=== PATIENT | male | born 1945 | race African-American/Black ===

== ENCOUNTER 2020-07-24 15:20 | Inpatient (IN) ==
[2020-07-24] MEDS ORDERED: SODIUM CHLORIDE 0.9% 500 ML IV STA (17:40)
[2020-07-24] MEDS ORDERED: ONDANSETRON 4 MG/2 ML VIAL IV STA (18:44)
[2020-07-24 18:45] LABS: Basophils % 0.4 % (0.0-0.8); Eosinophils % 0.1 % (0.00-10.9); Hematocrit 47.1 VOL% (42.0-52.0); Hemoglobin 15.3 GM/DL (14.0-18.0); Immature Granulocytes % 0.5 %; Immature Granulocytes Absolute 0.05 #; Lymphocytes % 9.9 % (21.2-54.2); Mean Corpuscular HGB Conc 32.5 GM/DL (32-36); Mean Corpuscular Volume 97.3 FL (87-102); Mean Platelet Volume 9.8 FL (9.6-12.0); Neutrophils % 79.1 % (38.7-73.9); Platelet Count 189 T/CUMM (130-400); Red Blood Count 4.84 MC/CUMM (3.8-5.5); Red Cell Distribution Width 16.8 % (9.3-17.3); White Blood Count 10.5 T/CUMM (4-12)
[2020-07-24 19:03] LABS: Albumin 3.5 G/DL (3.4-5.0); Bilirubin,Total 0.5 MG/DL (0.2-1.0); Total Protein 8.8 G/DL (6.4-8.3)
[2020-07-24] MEDS ORDERED: GLUCAGON 1 MG VIAL IM PRN (19:31)
[2020-07-24] MEDS ORDERED: DEXTROSE 50% 25 GM/50 ML VIAL IV PRN (19:31)
[2020-07-24] MEDS ORDERED: ENOXAPARIN 30 MG/0.3 ML SYRINGE SUBCUT SCH (20:00)
[2020-07-24] MEDS ORDERED: INFLUENZA VIRUS VACCINE 0.5 ML SYRINGE IM ONE (21:27)
[2020-07-24] MEDS: PIPERACILLIN/TAZOBACTAM 3,375 MG in SODIUM CHLORIDE 0.9% 100 ML IV SCH (22:00)
[2020-07-24] MEDS: PANTOPRAZOLE 40 MG VIAL IV SCH (22:00)
[2020-07-24] MEDS ORDERED: VANCOMYCIN INJ 750 MG in SODIUM CHLORIDE 0.9% 250 ML IV PRN (22:33)
[2020-07-25] MEDS ORDERED: VANCOMYCIN INJ 1,500 MG in SODIUM CHLORIDE 0.9% 500 ML IV ONE (02:00)
[2020-07-25 02:28] LABS: INR 2.4; PT Patient Result 24.8 SECS (9.8-11.9)
[2020-07-25 03:01] LABS: Calcium 8.1 MG/DL (8.5-10.1); Osmolality,Calculated 278.1 MOS/KG (273-304); Risk Ratio 4.24; Thyroid Stimulating Hormone 1.08 uIU/ml (0.358-3.74); VLDL CHOLESTEROL 39.4 MG/DL
[2020-07-25 05:46] LABS: Basophils % 0.2 % (0.0-0.8); Hematocrit 43.1 VOL% (42.0-52.0); Hemoglobin 13.9 GM/DL (14.0-18.0); Immature Granulocytes % 0.9 %; Immature Granulocytes Absolute 0.15 #; Lymphocytes # 2.2 10*3/uL (1.4-4.0); Lymphocytes % 13.2 % (21.2-54.2); Mean Corpuscular HGB Conc 32.3 GM/DL (32-36); Mean Corpuscular Volume 99.1 FL (87-102); Mean Platelet Volume 9.9 FL (9.6-12.0); Monocytes % 12.3 % (1.7-12.7); Neutrophils % 73.4 % (38.7-73.9); Platelet Count 164 T/CUMM (130-400); Red Blood Count 4.35 MC/CUMM (3.8-5.5); Red Cell Distribution Width 16.7 % (9.3-17.3); White Blood Count 16.8 T/CUMM (4-12)
[2020-07-25] MEDS ORDERED: FUROSEMIDE 20 MG TABLET PO SCH (09:00)
[2020-07-25] MEDS ORDERED: HEPARIN 5,000 UNIT/1 ML VIAL SUBCUT SCH (09:00)
[2020-07-25 09:03] LABS: ABG Base Excess 0.5 MMOL/L (-2.5-2.5); ABG HCO3 24.9 MMOL/L (20-26); ABG Oxygen Saturation 96.5 % (95-100); ABG PCO2 39.5 MM HG (35-48); ABG PH 7.411 (7.35-7.45); ABG PO2 86.1 MM HG (80-95); ABG TCO2 21.8 MMOL/L (23-27)
[2020-07-25 09:22] LABS: INR 2.2
[2020-07-25 09:28] LABS: Ferritin 692.2 ng/ml (26-388)
[2020-07-25] MEDS: ZINC GLUCONATE 50 MG TABLET PO SCH (10:52)
[2020-07-25] MEDS: CETIRIZINE 10 MG TABLET PO SCH (10:52)
[2020-07-25] MEDS: ASCORBIC ACID 500 MG TABLET PO SCH ×2 (10:52→21:00)
[2020-07-25] MEDS: FAMOTIDINE 20 MG TABLET PO SCH (10:52)
[2020-07-25] MEDS: MULTIVITAMIN (BEROCCA) TABLET PO SCH (10:52)
[2020-07-25] MEDS: PIPERACILLIN/TAZOBACTAM 3,375 MG in SODIUM CHLORIDE 0.9% 100 ML IV SCH ×2 (10:53→21:03)
[2020-07-25] MEDS: CHOLECALCIFEROL 1,000 UNIT TABLET PO SCH (11:30)
[2020-07-25] MEDS ORDERED: ALBUMIN 5% 25 GM in PREMIX 1 EACH IV ONE (14:00)
[2020-07-25] MEDS ORDERED: carvediloL 12.5 MG TABLET PO SCH (17:00)
[2020-07-25] MEDS ORDERED: carvediloL 3.125 MG TABLET PO SCH (17:00)
[2020-07-25] MEDS: WARFARIN 2 MG TABLET PO SCH (17:51)
[2020-07-25] MEDS: SODIUM CHLORIDE 0.9% 500 ML IV SCH (18:42)
[2020-07-25] MEDS: PANTOPRAZOLE 40 MG VIAL IV SCH (21:00)
[2020-07-25] MEDS: SIMVASTATIN 20 MG TABLET PO SCH (21:00)
[2020-07-26 04:29] LABS: INR 1.9; PT Patient Result 19.5 SECS (9.8-11.9)
[2020-07-26 08:05] LABS: Basophils % 0.3 % (0.0-0.8); Eosinophils # 0.1 10*3/uL (0.0-0.87); Eosinophils % 0.8 % (0.00-10.9); Hemoglobin 13.3 GM/DL (14.0-18.0); Immature Granulocytes % 0.3 %; Immature Granulocytes Absolute 0.03 #; Lymphocytes # 1.3 10*3/uL (1.4-4.0); Mean Corpuscular HGB Conc 31.7 GM/DL (32-36); Mean Corpuscular Volume 98.4 FL (87-102); Mean Platelet Volume 9.9 FL (9.6-12.0); Monocytes % 9.5 % (1.7-12.7); Neutrophils % 76.1 % (38.7-73.9); Platelet Count 158 T/CUMM (130-400); Red Blood Count 4.27 MC/CUMM (3.8-5.5); Red Cell Distribution Width 16.8 % (9.3-17.3); White Blood Count 9.6 T/CUMM (4-12)
[2020-07-26] MEDS: SODIUM CHLORIDE 0.9% 500 ML IV SCH ×3 (08:19→09:02)
[2020-07-26 08:29] LABS: Calcium 8.9 MG/DL (8.5-10.1); Osmolality,Calculated 292.8 MOS/KG (273-304)
[2020-07-26] MEDS: MAGNESIUM OXIDE 400 MG TABLET PO SCH (09:01)
[2020-07-26] MEDS: MULTIVITAMIN (BEROCCA) TABLET PO SCH (09:01)
[2020-07-26] MEDS: FAMOTIDINE 20 MG TABLET PO SCH (09:02)
[2020-07-26] MEDS: CHOLECALCIFEROL 1,000 UNIT TABLET PO SCH (09:02)
[2020-07-26] MEDS: ASCORBIC ACID 500 MG TABLET PO SCH ×2 (09:02→21:09)
[2020-07-26] MEDS: ZINC GLUCONATE 50 MG TABLET PO SCH (09:02)
[2020-07-26] MEDS: CETIRIZINE 10 MG TABLET PO SCH (09:03)
[2020-07-26] MEDS: PIPERACILLIN/TAZOBACTAM 3,375 MG in SODIUM CHLORIDE 0.9% 100 ML IV SCH ×2 (09:03→21:09)
[2020-07-26] MEDS: DEXAMETHASONE 4 MG/1 ML VIAL IV SCH (11:58)
[2020-07-26] MEDS: ACETAMINOPHEN 325 MG TABLET PO PRN ×2 (12:08→16:45)
[2020-07-26 13:18] LABS: Hepatitis B Core IgM Quant 0.06 Index; Hepatitis B Surface Ag Quant < 0.10 Index; Hepatitis B Surface Ag Result Negative (Negative); Hepatitis C Virus Ab Quant < 0.02 Index; Hepatitis C Virus Ab Result Negative (Negative)
[2020-07-26] MEDS: WARFARIN 5 MG TABLET PO SCH (17:21)
[2020-07-26] MEDS: SIMVASTATIN 20 MG TABLET PO SCH (21:09)
[2020-07-27] MEDS: ONDANSETRON 4 MG/2 ML VIAL IV PRN ×2 (05:36→08:20)
[2020-07-27 05:49] LABS: Basophils % 0.5 % (0.0-0.8); Hematocrit 45.9 VOL% (42.0-52.0); Immature Granulocytes % 0.6 %; Immature Granulocytes Absolute 0.05 #; Mean Corpuscular HGB Conc 32.7 GM/DL (32-36); Mean Corpuscular Volume 97.7 FL (87-102); Mean Platelet Volume 9.7 FL (9.6-12.0); Monocytes % 9.9 % (1.7-12.7); Platelet Count 149 T/CUMM (130-400); Red Cell Distribution Width 16.5 % (9.3-17.3); White Blood Count 7.9 T/CUMM (4-12)
[2020-07-27 05:58] LABS: INR 1.3; PT Patient Result 13.3 SECS (9.8-11.9)
[2020-07-27 07:27] LABS: Bilirubin,Total 0.7 MG/DL (0.2-1.0); Calcium 9.2 MG/DL (8.5-10.1); Ferritin 1164.1 ng/ml (26-388); Osmolality,Calculated 277.4 MOS/KG (273-304); Total Protein 8.2 G/DL (6.4-8.3)
[2020-07-27] MEDS: MAGNESIUM OXIDE 400 MG TABLET PO SCH (08:20)
[2020-07-27] MEDS: FAMOTIDINE 20 MG TABLET PO SCH ×2 (09:41→21:21)
[2020-07-27] MEDS: PIPERACILLIN/TAZOBACTAM 3,375 MG in SODIUM CHLORIDE 0.9% 100 ML IV SCH ×2 (09:41→21:21)
[2020-07-27] MEDS: ASCORBIC ACID 500 MG TABLET PO SCH ×2 (09:41→21:21)
[2020-07-27] MEDS: CHOLECALCIFEROL 1,000 UNIT TABLET PO SCH (09:41)
[2020-07-27] MEDS: CETIRIZINE 10 MG TABLET PO SCH (09:41)
[2020-07-27] MEDS: MULTIVITAMIN (BEROCCA) TABLET PO SCH (09:41)
[2020-07-27] MEDS: ZINC GLUCONATE 50 MG TABLET PO SCH (09:41)
[2020-07-27] MEDS: DEXAMETHASONE 4 MG/1 ML VIAL IV SCH (10:49)
[2020-07-27] MEDS: ACETAMINOPHEN 325 MG TABLET PO PRN (13:31)
[2020-07-27] MEDS ORDERED: SODIUM CHLORIDE 0.9% 1,000 ML IV PRN (15:21)
[2020-07-27] MEDS: WARFARIN 5 MG TABLET PO SCH (17:35)
[2020-07-27 17:46] LABS: QuantiFERON-Tb Gold Pl Positive (Negative); TB2 Ag Minus Result 4.84 IU/mL
[2020-07-27] MEDS: MELATONIN 3 MG TABLET PO PRN (21:21)
[2020-07-27] MEDS: SIMVASTATIN 20 MG TABLET PO SCH (21:21)
[2020-07-28 05:14] LABS: INR 1.3; PT Patient Result 13.9 SECS (9.8-11.9)
[2020-07-28 08:08] LABS: Basophils % 0.3 % (0.0-0.8); Hematocrit 41.9 VOL% (42.0-52.0); Immature Granulocytes % 0.9 %; Immature Granulocytes Absolute 0.07 #; Lymphocytes # 0.8 10*3/uL (1.4-4.0); Lymphocytes % 10.9 % (21.2-54.2); Mean Corpuscular HGB Conc 33.4 GM/DL (32-36); Mean Platelet Volume 10.8 FL (9.6-12.0); Monocytes % 9.2 % (1.7-12.7); Neutrophils % 78.7 % (38.7-73.9); Platelet Count 144 T/CUMM (130-400); Red Blood Count 4.41 MC/CUMM (3.8-5.5); Red Cell Distribution Width 16.5 % (9.3-17.3); White Blood Count 7.7 T/CUMM (4-12)
[2020-07-28 08:30] LABS: Calcium 8.6 MG/DL (8.5-10.1); Osmolality,Calculated 289.2 MOS/KG (273-304)
[2020-07-28] MEDS: ZINC GLUCONATE 50 MG TABLET PO SCH (08:32)
[2020-07-28] MEDS: MAGNESIUM OXIDE 400 MG TABLET PO SCH (08:32)
[2020-07-28] MEDS: CETIRIZINE 10 MG TABLET PO SCH (08:32)
[2020-07-28] MEDS: CHOLECALCIFEROL 1,000 UNIT TABLET PO SCH (08:32)
[2020-07-28] MEDS: FAMOTIDINE 20 MG TABLET PO SCH ×2 (08:33→20:40)
[2020-07-28] MEDS: MULTIVITAMIN (BEROCCA) TABLET PO SCH (08:33)
[2020-07-28] MEDS: PIPERACILLIN/TAZOBACTAM 3,375 MG in SODIUM CHLORIDE 0.9% 100 ML IV SCH ×2 (08:34→20:41)
[2020-07-28] MEDS: ASCORBIC ACID 500 MG TABLET PO SCH ×2 (09:26→20:40)
[2020-07-28] MEDS ORDERED: TUBERCULIN SKIN TEST 0.1 ML SYRINGE INTRADERM ONE (10:50)
[2020-07-28] MEDS: DEXAMETHASONE 4 MG/1 ML VIAL IV SCH (12:28)
[2020-07-28] MEDS: ACETAMINOPHEN 325 MG TABLET PO PRN (14:10)
[2020-07-28] MEDS ORDERED: WARFARIN 7.5 MG TABLET PO ONE (18:00)
[2020-07-28] MEDS: SIMVASTATIN 20 MG TABLET PO SCH (20:40)
[2020-07-28] MEDS: MELATONIN 3 MG TABLET PO PRN (20:40)
[2020-07-29] MEDS: ACETAMINOPHEN 325 MG TABLET PO PRN ×2 (04:48→12:34)
[2020-07-29 05:16] LABS: Basophils % 0.1 % (0.0-0.8); Hematocrit 39.6 VOL% (42.0-52.0); Hemoglobin 13.5 GM/DL (14.0-18.0); Immature Granulocytes % 0.7 %; Immature Granulocytes Absolute 0.05 #; Lymphocytes # 0.7 10*3/uL (1.4-4.0); Lymphocytes % 9.5 % (21.2-54.2); Mean Corpuscular HGB Conc 34.1 GM/DL (32-36); Mean Corpuscular Volume 92.7 FL (87-102); Mean Platelet Volume 11.1 FL (9.6-12.0); Monocytes % 7.3 % (1.7-12.7); Neutrophils % 82.4 % (38.7-73.9); Platelet Count 148 T/CUMM (130-400); Red Blood Count 4.27 MC/CUMM (3.8-5.5); Red Cell Distribution Width 15.9 % (9.3-17.3)
[2020-07-29 05:25] LABS: INR 1.5; PT Patient Result 15.5 SECS (9.8-11.9)
[2020-07-29 05:55] LABS: Calcium 8.8 MG/DL (8.5-10.1); Osmolality,Calculated 281.2 MOS/KG (273-304)
[2020-07-29] MEDS: ISONIAZID 300 MG TABLET PO SCH (08:22)
[2020-07-29] MEDS: PIPERACILLIN/TAZOBACTAM 3,375 MG in SODIUM CHLORIDE 0.9% 100 ML IV SCH ×2 (08:22→21:23)
[2020-07-29] MEDS: MAGNESIUM OXIDE 400 MG TABLET PO SCH (08:23)
[2020-07-29] MEDS: CETIRIZINE 10 MG TABLET PO SCH (08:23)
[2020-07-29] MEDS: FAMOTIDINE 20 MG TABLET PO SCH ×2 (08:23→21:23)
[2020-07-29] MEDS: CHOLECALCIFEROL 1,000 UNIT TABLET PO SCH (08:23)
[2020-07-29] MEDS: MULTIVITAMIN (BEROCCA) TABLET PO SCH (08:23)
[2020-07-29] MEDS: ZINC GLUCONATE 50 MG TABLET PO SCH (08:23)
[2020-07-29] MEDS: ASCORBIC ACID 500 MG TABLET PO SCH ×2 (08:24→21:23)
[2020-07-29] MEDS: DEXAMETHASONE 4 MG/1 ML VIAL IV SCH (14:38)
[2020-07-29] MEDS: WARFARIN 5 MG TABLET PO SCH (18:32)
[2020-07-29] MEDS: SIMVASTATIN 20 MG TABLET PO SCH (21:23)
[2020-07-30 06:18] LABS: INR 2.1
[2020-07-30 06:20] LABS: PT Patient Result 21.8 SECS (9.8-11.9)
[2020-07-30] MEDS: MAGNESIUM OXIDE 400 MG TABLET PO SCH (08:24)
[2020-07-30] MEDS: MULTIVITAMIN (BEROCCA) TABLET PO SCH (08:24)
[2020-07-30] MEDS: ASCORBIC ACID 500 MG TABLET PO SCH ×2 (08:25→20:31)
[2020-07-30] MEDS: FAMOTIDINE 20 MG TABLET PO SCH ×2 (08:25→20:32)
[2020-07-30] MEDS: ZINC GLUCONATE 50 MG TABLET PO SCH (08:25)
[2020-07-30] MEDS: PIPERACILLIN/TAZOBACTAM 3,375 MG in SODIUM CHLORIDE 0.9% 100 ML IV SCH (08:25)
[2020-07-30] MEDS: ISONIAZID 300 MG TABLET PO SCH (08:25)
[2020-07-30] MEDS: CETIRIZINE 10 MG TABLET PO SCH (08:25)
[2020-07-30] MEDS: CHOLECALCIFEROL 1,000 UNIT TABLET PO SCH (08:25)
[2020-07-30] MEDS: DEXAMETHASONE 4 MG/1 ML VIAL IV SCH (11:05)
[2020-07-30] MEDS: ACETAMINOPHEN 325 MG TABLET PO PRN (12:16)
[2020-07-30] MEDS: cefTRIAXone 1,000 MG in SYRINGE 1 EACH IV SCH (16:41)
[2020-07-30] MEDS: WARFARIN 5 MG TABLET PO SCH (17:20)
[2020-07-30] MEDS ORDERED: VANCOMYCIN INJ 1,500 MG in SODIUM CHLORIDE 0.9% 500 ML IV ONE (18:00)
[2020-07-30] MEDS: SIMVASTATIN 20 MG TABLET PO SCH (20:31)
[2020-07-31 05:50] LABS: Calcium 9.3 MG/DL (8.5-10.1); Osmolality,Calculated 298.4 MOS/KG (273-304)
[2020-07-31 05:57] LABS: Basophils % 0.1 % (0.0-0.8); Hematocrit 40.1 VOL% (42.0-52.0); Hemoglobin 13.4 GM/DL (14.0-18.0); Immature Granulocytes % 2.3 %; Lymphocytes # 0.7 10*3/uL (1.4-4.0); Lymphocytes % 8.4 % (21.2-54.2); Mean Corpuscular HGB Conc 33.4 GM/DL (32-36); Mean Corpuscular Volume 93.9 FL (87-102); Mean Platelet Volume 11.4 FL (9.6-12.0); Monocytes % 5.7 % (1.7-12.7); Neutrophils % 83.5 % (38.7-73.9); Platelet Count 189 T/CUMM (130-400); Red Blood Count 4.27 MC/CUMM (3.8-5.5); Red Cell Distribution Width 16.3 % (9.3-17.3); White Blood Count 8.7 T/CUMM (4-12)
[2020-07-31 06:10] LABS: INR 2.1
[2020-07-31 06:11] LABS: PT Patient Result 21.7 SECS (9.8-11.9)
[2020-07-31] MEDS: ISONIAZID 300 MG TABLET PO SCH (08:00)
[2020-07-31] MEDS: FAMOTIDINE 20 MG TABLET PO SCH ×2 (08:00→22:23)
[2020-07-31] MEDS: MULTIVITAMIN (BEROCCA) TABLET PO SCH (08:00)
[2020-07-31] MEDS: ASCORBIC ACID 500 MG TABLET PO SCH ×2 (08:00→22:24)
[2020-07-31] MEDS: CETIRIZINE 10 MG TABLET PO SCH (08:00)
[2020-07-31] MEDS: MAGNESIUM OXIDE 400 MG TABLET PO SCH (08:00)
[2020-07-31] MEDS: CHOLECALCIFEROL 1,000 UNIT TABLET PO SCH (08:00)
[2020-07-31] MEDS: ZINC GLUCONATE 50 MG TABLET PO SCH (08:00)
[2020-07-31] MEDS ORDERED: ERGOCALCIFEROL 50,000 UNIT CAPSULE PO SCH (09:00)
[2020-07-31] MEDS: DEXAMETHASONE 4 MG/1 ML VIAL IV SCH (11:32)
[2020-07-31] MEDS: ACETAMINOPHEN 325 MG TABLET PO PRN (11:48)
[2020-07-31] MEDS: cefTRIAXone 1,000 MG in SYRINGE 1 EACH IV SCH (14:18)
[2020-07-31] MEDS ORDERED: VANCOMYCIN INJ 500 MG in SODIUM CHLORIDE 0.9% 100 ML IV PRN (17:00)
[2020-07-31] MEDS ORDERED: VANCOMYCIN INJ 500 MG in SODIUM CHLORIDE 0.9% 100 ML IV ONE (17:00)
[2020-07-31] MEDS: WARFARIN 2 MG TABLET PO SCH (17:05)
[2020-07-31] MEDS: SIMVASTATIN 20 MG TABLET PO SCH (22:24)
[2020-08-01] MEDS: ONDANSETRON 4 MG/2 ML VIAL IV PRN (03:12)
[2020-08-01] MEDS: ACETAMINOPHEN 325 MG TABLET PO PRN ×2 (05:00→09:42)
[2020-08-01 06:28] LABS: Albumin 2.2 G/DL (3.4-5.0); Bilirubin,Total 0.5 MG/DL (0.2-1.0); Calcium 9.4 MG/DL (8.5-10.1); Osmolality,Calculated 284.7 MOS/KG (273-304); Total Protein 8.2 G/DL (6.4-8.3)
[2020-08-01 07:41] LABS: Basophils % 0.1 % (0.0-0.8); Hematocrit 31.5 VOL% (42.0-52.0); Hemoglobin 10.2 GM/DL (14.0-18.0); Immature Granulocytes % 1.9 %; Immature Granulocytes Absolute 0.13 #; Lymphocytes # 0.5 10*3/uL (1.4-4.0); Lymphocytes % 6.4 % (21.2-54.2); Mean Corpuscular HGB Conc 32.4 GM/DL (32-36); Mean Corpuscular Volume 96.6 FL (87-102); Mean Platelet Volume 11.3 FL (9.6-12.0); Monocytes % 6.2 % (1.7-12.7); Neutrophils % 85.4 % (38.7-73.9); Platelet Count 135 T/CUMM (130-400); Red Blood Count 3.26 MC/CUMM (3.8-5.5); Red Cell Distribution Width 16.6 % (9.3-17.3)
[2020-08-01] MEDS: MAGNESIUM OXIDE 400 MG TABLET PO SCH (09:41)
[2020-08-01] MEDS: MULTIVITAMIN (BEROCCA) TABLET PO SCH (09:42)
[2020-08-01] MEDS: CETIRIZINE 10 MG TABLET PO SCH (09:42)
[2020-08-01] MEDS: FAMOTIDINE 20 MG TABLET PO SCH ×2 (09:42→21:57)
[2020-08-01] MEDS: ISONIAZID 300 MG TABLET PO SCH (12:00)
[2020-08-01 12:09] LABS: INR 3.4
[2020-08-01] MEDS: ASCORBIC ACID 500 MG TABLET PO SCH ×2 (12:09→21:57)
[2020-08-01] MEDS: CHOLECALCIFEROL 1,000 UNIT TABLET PO SCH (12:09)
[2020-08-01] MEDS: DEXAMETHASONE 4 MG/1 ML VIAL IV SCH (12:09)
[2020-08-01] MEDS: ZINC GLUCONATE 50 MG TABLET PO SCH (12:09)
[2020-08-01 12:10] LABS: PT Patient Result 33.9 SECS (9.8-11.9)
[2020-08-01] MEDS: cefTRIAXone 1,000 MG in SYRINGE 1 EACH IV SCH (15:12)
[2020-08-01] MEDS: WARFARIN 2 MG TABLET PO SCH (21:57)
[2020-08-01] MEDS: SIMVASTATIN 20 MG TABLET PO SCH (21:57)
[2020-08-02 05:22] LABS: Basophils % 0.2 % (0.0-0.8); Hematocrit 38.5 VOL% (42.0-52.0); Immature Granulocytes % 2.7 %; Lymphocytes # 0.7 10*3/uL (1.4-4.0); Lymphocytes % 6.5 % (21.2-54.2); Mean Corpuscular HGB Conc 33.8 GM/DL (32-36); Mean Corpuscular Volume 92.1 FL (87-102); Mean Platelet Volume 11.4 FL (9.6-12.0); Monocytes % 6.6 % (1.7-12.7); Platelet Count 263 T/CUMM (130-400); Red Blood Count 4.18 MC/CUMM (3.8-5.5); Red Cell Distribution Width 15.9 % (9.3-17.3); White Blood Count 11.3 T/CUMM (4-12)
[2020-08-02 05:31] LABS: INR 3.1; PT Patient Result 31.7 SECS (9.8-11.9)
[2020-08-02 05:54] LABS: Albumin 1.8 G/DL (3.4-5.0); Bilirubin,Total 0.6 MG/DL (0.2-1.0); Calcium 9.2 MG/DL (8.5-10.1); Osmolality,Calculated 299.4 MOS/KG (273-304)
[2020-08-02] MEDS: CHOLECALCIFEROL 1,000 UNIT TABLET PO SCH (09:03)
[2020-08-02] MEDS: CETIRIZINE 10 MG TABLET PO SCH (09:03)
[2020-08-02] MEDS: ISONIAZID 300 MG TABLET PO SCH (09:03)
[2020-08-02] MEDS: MAGNESIUM OXIDE 400 MG TABLET PO SCH (09:03)
[2020-08-02] MEDS: FAMOTIDINE 20 MG TABLET PO SCH ×2 (09:03→22:33)
[2020-08-02] MEDS: MULTIVITAMIN (BEROCCA) TABLET PO SCH (09:03)
[2020-08-02] MEDS: ZINC GLUCONATE 50 MG TABLET PO SCH (09:03)
[2020-08-02] MEDS: ASCORBIC ACID 500 MG TABLET PO SCH ×2 (09:03→22:33)
[2020-08-02] MEDS: DEXAMETHASONE 4 MG/1 ML VIAL IV SCH (11:30)
[2020-08-02] MEDS: WARFARIN 5 MG TABLET PO SCH (18:08)
[2020-08-02] MEDS: cefTRIAXone 1,000 MG in SYRINGE 1 EACH IV SCH (18:09)
[2020-08-02] MEDS: SIMVASTATIN 20 MG TABLET PO SCH (22:33)
[2020-08-03 05:37] LABS: Basophils % 0.2 % (0.0-0.8); Hematocrit 38.6 VOL% (42.0-52.0); Hemoglobin 13.4 GM/DL (14.0-18.0); Immature Granulocytes % 5.1 %; Lymphocytes # 0.7 10*3/uL (1.4-4.0); Lymphocytes % 5.8 % (21.2-54.2); Mean Corpuscular HGB Conc 34.7 GM/DL (32-36); Mean Platelet Volume 11.2 FL (9.6-12.0); Monocytes % 7.5 % (1.7-12.7); Neutrophils % 81.4 % (38.7-73.9); Platelet Count 322 T/CUMM (130-400); Red Blood Count 4.29 MC/CUMM (3.8-5.5); Red Cell Distribution Width 15.7 % (9.3-17.3); White Blood Count 11.9 T/CUMM (4-12)
[2020-08-03 05:50] LABS: INR 3.3; PT Patient Result 32.9 SECS (9.8-11.9)
[2020-08-03 06:00] LABS: Bilirubin,Total 0.4 MG/DL (0.2-1.0); Calcium 9.1 MG/DL (8.5-10.1); Osmolality,Calculated 292.1 MOS/KG (273-304); Total Protein 7.4 G/DL (6.4-8.3)
[2020-08-03 06:02] LABS: Band Neutrophils 1 % (0-10); Hypochromasia 1+; Lymphocytes 8 % (20-55); Microcytosis 1+; Ovalocytes Slight; Platelet Estimate Adequate; Segmented Neutrophils 82 % (50-85); Total Cells Counted 100
[2020-08-03] MEDS: ISONIAZID 300 MG TABLET PO SCH (09:43)
[2020-08-03] MEDS: MAGNESIUM OXIDE 400 MG TABLET PO SCH (09:43)
[2020-08-03] MEDS: ZINC GLUCONATE 50 MG TABLET PO SCH (09:43)
[2020-08-03] MEDS: FAMOTIDINE 20 MG TABLET PO SCH ×2 (09:43→21:25)
[2020-08-03] MEDS: CHOLECALCIFEROL 1,000 UNIT TABLET PO SCH (09:43)
[2020-08-03] MEDS: ASCORBIC ACID 500 MG TABLET PO SCH ×2 (09:43→21:25)
[2020-08-03] MEDS: MULTIVITAMIN (BEROCCA) TABLET PO SCH (09:43)
[2020-08-03] MEDS ORDERED: VANCOMYCIN INJ 500 MG in SODIUM CHLORIDE 0.9% 100 ML IV ONE (10:00)
[2020-08-03] MEDS: CETIRIZINE 10 MG TABLET PO SCH (10:33)
[2020-08-03] MEDS: DEXAMETHASONE 4 MG/1 ML VIAL IV SCH (10:34)
[2020-08-03] MEDS: cefTRIAXone 1,000 MG in SYRINGE 1 EACH IV SCH (16:38)
[2020-08-03] MEDS ORDERED: WARFARIN 2 MG TABLET PO SCH (18:00)
[2020-08-03] MEDS: SIMVASTATIN 20 MG TABLET PO SCH (21:25)
[2020-08-03] MEDS: MELATONIN 3 MG TABLET PO PRN (21:25)
[2020-08-03] MEDS: ACETAMINOPHEN 325 MG TABLET PO PRN (21:26)
[2020-08-04 05:16] LABS: INR 3.4; PT Patient Result 34.1 SECS (9.8-11.9)
[2020-08-04] MEDS: CETIRIZINE 10 MG TABLET PO SCH (09:35)
[2020-08-04] MEDS: ZINC GLUCONATE 50 MG TABLET PO SCH (09:35)
[2020-08-04] MEDS: MULTIVITAMIN (BEROCCA) TABLET PO SCH (09:35)
[2020-08-04] MEDS: FAMOTIDINE 20 MG TABLET PO SCH ×2 (09:35→20:44)
[2020-08-04] MEDS: CHOLECALCIFEROL 1,000 UNIT TABLET PO SCH (09:35)
[2020-08-04] MEDS: ASCORBIC ACID 500 MG TABLET PO SCH ×2 (09:35→20:44)
[2020-08-04] MEDS: ISONIAZID 300 MG TABLET PO SCH (09:35)
[2020-08-04] MEDS: MAGNESIUM OXIDE 400 MG TABLET PO SCH (10:45)
[2020-08-04 12:01] LABS: Albumin 2.6 G/DL (3.4-5.0); Calcium 9.1 MG/DL (8.5-10.1); Osmolality,Calculated 283.1 MOS/KG (273-304)
[2020-08-04] MEDS: DEXAMETHASONE 4 MG/1 ML VIAL IV SCH (13:18)
[2020-08-04] MEDS: cefTRIAXone 1,000 MG in SYRINGE 1 EACH IV SCH (15:32)
[2020-08-04] MEDS: DESITIN 4OZ/NYSTATIN 15 GRAM MIXTURE PASTE TOP SCH ×2 (17:07→20:45)
[2020-08-04] MEDS ORDERED: WARFARIN 5 MG TABLET PO SCH (18:00)
[2020-08-04] MEDS: MELATONIN 3 MG TABLET PO PRN (20:44)
[2020-08-04] MEDS: SIMVASTATIN 20 MG TABLET PO SCH (20:44)
[2020-08-05 04:39] LABS: Basophils # 0.1 10*3/uL (0.0-0.2); Basophils % 0.5 % (0.0-0.8); Hematocrit 39.2 VOL% (42.0-52.0); Hemoglobin 13.2 GM/DL (14.0-18.0); Immature Granulocytes % 7.9 %; Immature Granulocytes Absolute 1.08 #; Lymphocytes # 0.7 10*3/uL (1.4-4.0); Lymphocytes % 4.8 % (21.2-54.2); Mean Corpuscular HGB Conc 33.7 GM/DL (32-36); Mean Corpuscular Volume 93.3 FL (87-102); Monocytes % 8.2 % (1.7-12.7); Neutrophils % 78.6 % (38.7-73.9); Platelet Count 395 T/CUMM (130-400); Red Cell Distribution Width 16.1 % (9.3-17.3); White Blood Count 13.7 T/CUMM (4-12)
[2020-08-05 05:00] LABS: Albumin 2.3 G/DL (3.4-5.0); Bilirubin,Total 0.5 MG/DL (0.2-1.0); Calcium 9.6 MG/DL (8.5-10.1); Osmolality,Calculated 298.1 MOS/KG (273-304); Total Protein 7.6 G/DL (6.4-8.3)
[2020-08-05 05:04] LABS: Band Neutrophils 1 % (0-10); Lymphocytes 3 % (20-55); Platelet Estimate Adequate; Segmented Neutrophils 89 % (50-85); Total Cells Counted 100
[2020-08-05 05:05] LABS: Hypochromasia Slight; INR 2.8; Microcytosis 1+; PT Patient Result 28.3 SECS (9.8-11.9)
[2020-08-05] MEDS: ZINC GLUCONATE 50 MG TABLET PO SCH (09:47)
[2020-08-05] MEDS: FAMOTIDINE 20 MG TABLET PO SCH ×2 (09:47→20:19)
[2020-08-05] MEDS: CETIRIZINE 10 MG TABLET PO SCH (09:47)
[2020-08-05] MEDS: MULTIVITAMIN (BEROCCA) TABLET PO SCH (09:47)
[2020-08-05] MEDS: ASCORBIC ACID 500 MG TABLET PO SCH ×2 (09:47→20:19)
[2020-08-05] MEDS: CHOLECALCIFEROL 1,000 UNIT TABLET PO SCH (09:47)
[2020-08-05] MEDS: ISONIAZID 300 MG TABLET PO SCH (09:47)
[2020-08-05] MEDS: DESITIN 4OZ/NYSTATIN 15 GRAM MIXTURE PASTE TOP SCH ×2 (09:47→20:20)
[2020-08-05] MEDS: MAGNESIUM OXIDE 400 MG TABLET PO SCH (10:06)
[2020-08-05] MEDS: DEXAMETHASONE 4 MG/1 ML VIAL IV SCH (11:45)
[2020-08-05] MEDS: cefTRIAXone 1,000 MG in SYRINGE 1 EACH IV SCH (15:15)
[2020-08-05] MEDS: WARFARIN 2 MG TABLET PO SCH (17:48)
[2020-08-05] MEDS: SIMVASTATIN 20 MG TABLET PO SCH (20:19)
[2020-08-05] MEDS: MELATONIN 3 MG TABLET PO PRN (20:20)
[2020-08-06 05:23] LABS: PT Patient Result 20.5 SECS (9.8-11.9)
[2020-08-06 05:24] LABS: Basophils % 0.2 % (0.0-0.8); Hematocrit 34.6 VOL% (42.0-52.0); Immature Granulocytes % 8.7 %; Immature Granulocytes Absolute 1.35 #; Lymphocytes # 0.9 10*3/uL (1.4-4.0); Lymphocytes % 5.6 % (21.2-54.2); Mean Corpuscular HGB Conc 34.7 GM/DL (32-36); Mean Corpuscular Volume 91.5 FL (87-102); Mean Platelet Volume 10.5 FL (9.6-12.0); Monocytes % 7.3 % (1.7-12.7); NRBC # 0.11 10*3/uL; Neutrophils % 78.2 % (38.7-73.9); Platelet Count 382 T/CUMM (130-400); Red Blood Count 3.78 MC/CUMM (3.8-5.5); Red Cell Distribution Width 15.9 % (9.3-17.3); White Blood Count 15.5 T/CUMM (4-12)
[2020-08-06 05:39] LABS: Calcium 9.4 MG/DL (8.5-10.1); Osmolality,Calculated 299.4 MOS/KG (273-304)
[2020-08-06 06:10] LABS: Lymphocytes 15 % (20-55); Nucleated Red Blood Cells 1 (0-5); Platelet Estimate Normal; Segmented Neutrophils 84 % (50-85); Total Cells Counted 100
[2020-08-06] MEDS: DESITIN 4OZ/NYSTATIN 15 GRAM MIXTURE PASTE TOP SCH ×2 (13:55→21:13)
[2020-08-06] MEDS: ISONIAZID 300 MG TABLET PO SCH (13:55)
[2020-08-06] MEDS: FAMOTIDINE 20 MG TABLET PO SCH ×2 (13:55→21:13)
[2020-08-06] MEDS: MULTIVITAMIN (BEROCCA) TABLET PO SCH (13:55)
[2020-08-06] MEDS: MAGNESIUM OXIDE 400 MG TABLET PO SCH (13:55)
[2020-08-06] MEDS: CETIRIZINE 10 MG TABLET PO SCH (13:56)
[2020-08-06] MEDS: ZINC GLUCONATE 50 MG TABLET PO SCH (13:56)
[2020-08-06] MEDS: CHOLECALCIFEROL 1,000 UNIT TABLET PO SCH (13:56)
[2020-08-06] MEDS: DEXAMETHASONE 4 MG/1 ML VIAL IV SCH (13:56)
[2020-08-06] MEDS: ASCORBIC ACID 500 MG TABLET PO SCH ×2 (13:56→21:13)
[2020-08-06] MEDS: cefTRIAXone 1,000 MG in SYRINGE 1 EACH IV SCH (14:00)
[2020-08-06] MEDS: WARFARIN 5 MG TABLET PO SCH (19:17)
[2020-08-06] MEDS: MELATONIN 3 MG TABLET PO PRN (21:13)
[2020-08-06] MEDS: SIMVASTATIN 20 MG TABLET PO SCH (21:13)
[2020-08-07 06:04] LABS: Basophils % 0.1 % (0.0-0.8); Eosinophils # 0.1 10*3/uL (0.0-0.87); Eosinophils % 0.4 % (0.00-10.9); Hematocrit 41.1 VOL% (42.0-52.0); Hemoglobin 13.9 GM/DL (14.0-18.0); Immature Granulocytes % 11.7 %; Immature Granulocytes Absolute 1.78 #; Lymphocytes # 1.5 10*3/uL (1.4-4.0); Lymphocytes % 9.5 % (21.2-54.2); Mean Corpuscular HGB Conc 33.8 GM/DL (32-36); Mean Corpuscular Volume 94.9 FL (87-102); Mean Platelet Volume 10.5 FL (9.6-12.0); Monocytes % 7.3 % (1.7-12.7); NRBC # 0.07 10*3/uL; Platelet Count 358 T/CUMM (130-400); Red Blood Count 4.33 MC/CUMM (3.8-5.5); Red Cell Distribution Width 16.6 % (9.3-17.3); White Blood Count 15.2 T/CUMM (4-12)
[2020-08-07 06:12] LABS: INR 2.2
[2020-08-07 06:19] LABS: Albumin 2.3 G/DL (3.4-5.0); Bilirubin,Total 0.5 MG/DL (0.2-1.0); Calcium 9.5 MG/DL (8.5-10.1); Osmolality,Calculated 289.5 MOS/KG (273-304); Total Protein 7.6 G/DL (6.4-8.3)
[2020-08-07 06:35] LABS: Hypochromasia 1+; Lymphocytes 11 % (20-55); Microcytosis 1+; Platelet Estimate Adequate; Segmented Neutrophils 78 % (50-85); Total Cells Counted 100
[2020-08-07] MEDS: CHOLECALCIFEROL 1,000 UNIT TABLET PO SCH (08:42)
[2020-08-07] MEDS: ZINC GLUCONATE 50 MG TABLET PO SCH (08:42)
[2020-08-07] MEDS: MAGNESIUM OXIDE 400 MG TABLET PO SCH (08:42)
[2020-08-07] MEDS: ISONIAZID 300 MG TABLET PO SCH (08:43)
[2020-08-07] MEDS: ASCORBIC ACID 500 MG TABLET PO SCH ×2 (08:43→20:39)
[2020-08-07] MEDS: FAMOTIDINE 20 MG TABLET PO SCH ×2 (08:43→20:39)
[2020-08-07] MEDS: CETIRIZINE 10 MG TABLET PO SCH (08:43)
[2020-08-07] MEDS: DEXAMETHASONE 4 MG/1 ML VIAL IV SCH (08:43)
[2020-08-07] MEDS: DESITIN 4OZ/NYSTATIN 15 GRAM MIXTURE PASTE TOP SCH ×2 (08:44→20:39)
[2020-08-07] MEDS: MULTIVITAMIN (BEROCCA) TABLET PO SCH (08:45)
[2020-08-07] MEDS: WARFARIN 2 MG TABLET PO SCH (16:59)
[2020-08-07] MEDS: SIMVASTATIN 20 MG TABLET PO SCH (20:39)
[2020-08-07] MEDS: MELATONIN 3 MG TABLET PO PRN (20:40)
[2020-08-08 05:16] LABS: Basophils # 0.1 10*3/uL (0.0-0.2); Basophils % 0.5 % (0.0-0.8); Hemoglobin 12.1 GM/DL (14.0-18.0); Immature Granulocytes % 8.5 %; Immature Granulocytes Absolute 0.98 #; Lymphocytes # 0.8 10*3/uL (1.4-4.0); Lymphocytes % 6.8 % (21.2-54.2); Mean Corpuscular HGB Conc 33.6 GM/DL (32-36); Mean Corpuscular Volume 93.8 FL (87-102); Mean Platelet Volume 10.8 FL (9.6-12.0); Monocytes % 5.8 % (1.7-12.7); NRBC # 0.04 10*3/uL; Neutrophils % 78.4 % (38.7-73.9); Platelet Count 323 T/CUMM (130-400); Red Blood Count 3.84 MC/CUMM (3.8-5.5); Red Cell Distribution Width 16.2 % (9.3-17.3); White Blood Count 11.5 T/CUMM (4-12)
[2020-08-08 05:30] LABS: INR 2.3; PT Patient Result 23.5 SECS (9.8-11.9)
[2020-08-08 05:51] LABS: Albumin 2.2 G/DL (3.4-5.0); Bilirubin,Total 0.4 MG/DL (0.2-1.0); Calcium 9.3 MG/DL (8.5-10.1); Osmolality,Calculated 312.1 MOS/KG (273-304); Total Protein 6.8 G/DL (6.4-8.3)
[2020-08-08 06:37] LABS: Band Neutrophils 2 % (0-10); Lymphocytes 5 % (20-55); Platelet Estimate Adequate; Segmented Neutrophils 87 % (50-85); Total Cells Counted 100
[2020-08-08] MEDS: ASCORBIC ACID 500 MG TABLET PO SCH ×2 (08:27→21:09)
[2020-08-08] MEDS: CHOLECALCIFEROL 1,000 UNIT TABLET PO SCH (08:27)
[2020-08-08] MEDS: ISONIAZID 300 MG TABLET PO SCH (08:27)
[2020-08-08] MEDS: FAMOTIDINE 20 MG TABLET PO SCH ×2 (08:27→21:09)
[2020-08-08] MEDS: ZINC GLUCONATE 50 MG TABLET PO SCH (08:27)
[2020-08-08] MEDS: MAGNESIUM OXIDE 400 MG TABLET PO SCH (08:27)
[2020-08-08] MEDS: MULTIVITAMIN (BEROCCA) TABLET PO SCH (08:27)
[2020-08-08] MEDS: DEXAMETHASONE 4 MG/1 ML VIAL IV SCH (08:27)
[2020-08-08] MEDS: DESITIN 4OZ/NYSTATIN 15 GRAM MIXTURE PASTE TOP SCH ×2 (08:28→21:09)
[2020-08-08] MEDS: CETIRIZINE 10 MG TABLET PO SCH (10:24)
[2020-08-08] MEDS: carvediloL 6.25 MG TABLET PO SCH ×2 (10:24→21:09)
[2020-08-08] MEDS: WARFARIN 2 MG TABLET PO SCH (17:06)
[2020-08-08] MEDS: SIMVASTATIN 20 MG TABLET PO SCH (21:09)
[2020-08-08] MEDS: MELATONIN 3 MG TABLET PO PRN (21:09)
[2020-08-09 05:22] LABS: Basophils % 0.2 % (0.0-0.8); Hematocrit 37.9 VOL% (42.0-52.0); Hemoglobin 12.5 GM/DL (14.0-18.0); Immature Granulocytes % 7.3 %; Immature Granulocytes Absolute 0.85 #; Lymphocytes # 0.8 10*3/uL (1.4-4.0); Mean Platelet Volume 10.3 FL (9.6-12.0); Monocytes % 6.5 % (1.7-12.7); NRBC # 0.04 10*3/uL; Platelet Count 295 T/CUMM (130-400); Red Blood Count 4.03 MC/CUMM (3.8-5.5); Red Cell Distribution Width 16.6 % (9.3-17.3); White Blood Count 11.7 T/CUMM (4-12)
[2020-08-09 05:30] LABS: INR 2.8; PT Patient Result 28.2 SECS (9.8-11.9)
[2020-08-09 05:42] LABS: Lymphocytes 6 % (20-55); Platelet Estimate Adequate; Segmented Neutrophils 86 % (50-85); Total Cells Counted 100
[2020-08-09 05:43] LABS: Hypochromasia Slight
[2020-08-09 05:51] LABS: Albumin 2.3 G/DL (3.4-5.0); Bilirubin,Total 0.4 MG/DL (0.2-1.0); Calcium 9.5 MG/DL (8.5-10.1); Osmolality,Calculated 312.4 MOS/KG (273-304)
[2020-08-09] MEDS: MULTIVITAMIN (BEROCCA) TABLET PO SCH (09:06)
[2020-08-09] MEDS: CHOLECALCIFEROL 1,000 UNIT TABLET PO SCH (09:06)
[2020-08-09] MEDS: DESITIN 4OZ/NYSTATIN 15 GRAM MIXTURE PASTE TOP SCH ×2 (09:06→20:15)
[2020-08-09] MEDS: DEXAMETHASONE 4 MG/1 ML VIAL IV SCH (09:06)
[2020-08-09] MEDS: ZINC GLUCONATE 50 MG TABLET PO SCH (09:06)
[2020-08-09] MEDS: FAMOTIDINE 20 MG TABLET PO SCH ×2 (09:06→20:15)
[2020-08-09] MEDS: MAGNESIUM OXIDE 400 MG TABLET PO SCH (09:06)
[2020-08-09] MEDS: carvediloL 6.25 MG TABLET PO SCH ×2 (09:06→20:15)
[2020-08-09] MEDS: ASCORBIC ACID 500 MG TABLET PO SCH ×2 (09:06→20:15)
[2020-08-09] MEDS: ISONIAZID 300 MG TABLET PO SCH (09:06)
[2020-08-09] MEDS: CETIRIZINE 10 MG TABLET PO SCH (09:06)
[2020-08-09] MEDS: WARFARIN 5 MG TABLET PO SCH (19:06)
[2020-08-09] MEDS: SIMVASTATIN 20 MG TABLET PO SCH (20:15)
[2020-08-09] MEDS: MELATONIN 3 MG TABLET PO PRN (20:15)
[2020-08-10] MEDS: DEXAMETHASONE 4 MG/1 ML VIAL IV SCH (08:49)
[2020-08-10] MEDS: CHOLECALCIFEROL 1,000 UNIT TABLET PO SCH (08:49)
[2020-08-10] MEDS: MULTIVITAMIN (BEROCCA) TABLET PO SCH (08:49)
[2020-08-10] MEDS: ASCORBIC ACID 500 MG TABLET PO SCH ×2 (08:49→20:20)
[2020-08-10] MEDS: DESITIN 4OZ/NYSTATIN 15 GRAM MIXTURE PASTE TOP SCH ×2 (08:49→20:20)
[2020-08-10] MEDS: MAGNESIUM OXIDE 400 MG TABLET PO SCH (08:49)
[2020-08-10] MEDS: CETIRIZINE 10 MG TABLET PO SCH (08:49)
[2020-08-10] MEDS: ISONIAZID 300 MG TABLET PO SCH (08:49)
[2020-08-10] MEDS: FAMOTIDINE 20 MG TABLET PO SCH ×2 (08:49→20:20)
[2020-08-10] MEDS: carvediloL 6.25 MG TABLET PO SCH ×2 (08:49→20:28)
[2020-08-10] MEDS: ZINC GLUCONATE 50 MG TABLET PO SCH (08:49)
[2020-08-10] MEDS: WARFARIN 2 MG TABLET PO SCH (17:22)
[2020-08-10] MEDS: SIMVASTATIN 20 MG TABLET PO SCH (20:20)
[2020-08-10] MEDS: MELATONIN 3 MG TABLET PO PRN (20:20)
[2020-08-11 06:05] LABS: Basophils % 0.2 % (0.0-0.8); Hematocrit 36.6 VOL% (42.0-52.0); Hemoglobin 12.3 GM/DL (14.0-18.0); Immature Granulocytes % 2.6 %; Immature Granulocytes Absolute 0.27 #; Lymphocytes # 0.6 10*3/uL (1.4-4.0); Lymphocytes % 6.2 % (21.2-54.2); Mean Corpuscular HGB Conc 33.6 GM/DL (32-36); Mean Corpuscular Volume 93.6 FL (87-102); Mean Platelet Volume 10.3 FL (9.6-12.0); Monocytes % 10.6 % (1.7-12.7); NRBC # 0.02 10*3/uL; Neutrophils % 80.4 % (38.7-73.9); Platelet Count 245 T/CUMM (130-400); Red Blood Count 3.91 MC/CUMM (3.8-5.5); Red Cell Distribution Width 16.2 % (9.3-17.3); White Blood Count 10.2 T/CUMM (4-12)
[2020-08-11 06:08] LABS: INR 1.8; PT Patient Result 19.2 SECS (9.8-11.9)
[2020-08-11] MEDS: DEXAMETHASONE 4 MG/1 ML VIAL IV SCH (08:14)
[2020-08-11] MEDS: CETIRIZINE 10 MG TABLET PO SCH (08:15)
[2020-08-11] MEDS: CHOLECALCIFEROL 1,000 UNIT TABLET PO SCH (08:15)
[2020-08-11] MEDS: ZINC GLUCONATE 50 MG TABLET PO SCH (08:15)
[2020-08-11] MEDS: DESITIN 4OZ/NYSTATIN 15 GRAM MIXTURE PASTE TOP SCH ×2 (08:15→20:54)
[2020-08-11] MEDS: carvediloL 6.25 MG TABLET PO SCH ×2 (08:15→20:53)
[2020-08-11] MEDS: MULTIVITAMIN (BEROCCA) TABLET PO SCH (08:15)
[2020-08-11] MEDS: MAGNESIUM OXIDE 400 MG TABLET PO SCH (08:15)
[2020-08-11] MEDS: ISONIAZID 300 MG TABLET PO SCH (08:15)
[2020-08-11] MEDS: FAMOTIDINE 20 MG TABLET PO SCH ×2 (08:15→20:54)
[2020-08-11] MEDS: ASCORBIC ACID 500 MG TABLET PO SCH ×2 (08:15→20:53)
[2020-08-11 09:20] LABS: Calcium 9.3 MG/DL (8.5-10.1); Osmolality,Calculated 311.5 MOS/KG (273-304)
[2020-08-11] MEDS: SODIUM POLYSTYRENE SULFATE 15 GM/60 ML BOTTLE PO SCH ×3 (11:01→22:34)
[2020-08-11] MEDS: WARFARIN 5 MG TABLET PO SCH (17:34)
[2020-08-11] MEDS: SIMVASTATIN 20 MG TABLET PO SCH (20:53)
[2020-08-11] MEDS: MELATONIN 3 MG TABLET PO PRN (20:53)
[2020-08-12 05:22] LABS: Basophils % 0.1 % (0.0-0.8); Hematocrit 33.3 VOL% (42.0-52.0); Hemoglobin 11.2 GM/DL (14.0-18.0); Immature Granulocytes % 2.5 %; Immature Granulocytes Absolute 0.28 #; Lymphocytes # 0.7 10*3/uL (1.4-4.0); Lymphocytes % 6.6 % (21.2-54.2); Mean Corpuscular HGB Conc 33.6 GM/DL (32-36); Mean Platelet Volume 10.4 FL (9.6-12.0); Monocytes % 9.4 % (1.7-12.7); NRBC # 0.02 10*3/uL; Neutrophils % 81.4 % (38.7-73.9); Platelet Count 231 T/CUMM (130-400); Red Blood Count 3.62 MC/CUMM (3.8-5.5); Red Cell Distribution Width 15.9 % (9.3-17.3); White Blood Count 11.1 T/CUMM (4-12)
[2020-08-12 05:35] LABS: PT Patient Result 21.2 SECS (9.8-11.9)
[2020-08-12 06:43] LABS: Calcium 8.7 MG/DL (8.5-10.1); Osmolality,Calculated 328.8 MOS/KG (273-304)
[2020-08-12] MEDS: DEXAMETHASONE 4 MG/1 ML VIAL IV SCH (08:08)
[2020-08-12] MEDS: ISONIAZID 300 MG TABLET PO SCH (08:09)
[2020-08-12] MEDS: CETIRIZINE 10 MG TABLET PO SCH (08:09)
[2020-08-12] MEDS: FAMOTIDINE 20 MG TABLET PO SCH (08:09)
[2020-08-12] MEDS: DESITIN 4OZ/NYSTATIN 15 GRAM MIXTURE PASTE TOP SCH (08:09)
[2020-08-12] MEDS: ASCORBIC ACID 500 MG TABLET PO SCH (08:09)
[2020-08-12] MEDS: ZINC GLUCONATE 50 MG TABLET PO SCH (08:09)
[2020-08-12] MEDS: MAGNESIUM OXIDE 400 MG TABLET PO SCH (08:09)
[2020-08-12] MEDS: MULTIVITAMIN (BEROCCA) TABLET PO SCH (08:09)
[2020-08-12] MEDS: CHOLECALCIFEROL 1,000 UNIT TABLET PO SCH (08:09)
[2020-08-12] MEDS: carvediloL 6.25 MG TABLET PO SCH (08:09)
[2020-08-12] MEDS ORDERED: MENTHOL/ZINC OXIDE OINT 71 GM JAR TOP SCH (09:00)
[2020-08-12 12:01] LABS: HIV Antigen/Antibody Result Nonreactive (Nonreactive)
[2020-08-12 15:49] VITALS: BP 109/50
== END 2020-08-12 14:42 | DRG 177 ==
LOC: N.ED 15:20 → SUATTDRO 19:31 → N.EDINP 19:31 → N.3E 20:15 → N.2E 07-26 14:11
PROVIDERS: ADMIT Internal Medicine; ATTEND Internal Medicine

== ENCOUNTER 2021-03-24 07:54 | Inpatient (IN) ==
[2021-03-24 09:14] LABS: Basophils # 0.1 10*3/uL (0.0-0.2); Basophils % 0.6 % (0.0-0.8); Eosinophils # 0.2 10*3/uL (0.0-0.87); Eosinophils % 1.4 % (0.00-10.9); Hemoglobin 12.6 GM/DL (14.0-18.0); Immature Granulocytes % 1.9 %; Immature Granulocytes Absolute 0.28 #; Lymphocytes # 1.8 10*3/uL (1.4-4.0); Lymphocytes % 12.4 % (21.2-54.2); Mean Corpuscular HGB Conc 30.7 GM/DL (32-36); Mean Corpuscular Volume 99.8 FL (87-102); Mean Platelet Volume 9.4 FL (9.6-12.0); Neutrophils % 76.7 % (38.7-73.9); Platelet Count 329 T/CUMM (130-400); Red Blood Count 4.11 MC/CUMM (3.8-5.5); Red Cell Distribution Width 17.9 % (9.3-17.3); White Blood Count 14.6 T/CUMM (4-12)
[2021-03-24 09:24] LABS: PT Patient Result 11.6 SECS (10.5-12.0); Partial Thromboplastin Time 29.3 SECS (23.9-33.8)
[2021-03-24 09:38] LABS: Albumin 2.9 G/DL (3.4-5.0); Bilirubin,Total 0.4 MG/DL (0.20-1.00); Potassium 4.2 MMOL/L (3.5-5.1)
[2021-03-24] MEDS ORDERED: CLINDAMYCIN INJ 600 MG/50 ML PREMIX IV STA (09:38)
[2021-03-24] MEDS ORDERED: ONDANSETRON 4 MG/2 ML VIAL ONE (10:49)
[2021-03-24] MEDS ORDERED: propofoL 200 MG/20 ML VIAL IV ONE (10:49)
[2021-03-24] MEDS ORDERED: fentaNYL 100 MCG/2 ML VIAL ONE (10:49)
[2021-03-24] MEDS ORDERED: LIDOCAINE 2% 5 ML VIAL ONE (10:49)
[2021-03-24] MEDS ORDERED: BUPIVACAINE MPF 0.25% 30 ML VIAL ONE (10:51)
[2021-03-24] MEDS ORDERED: DEXTROSE 50% 25 GM/50 ML VIAL IV PRN (10:57)
[2021-03-24] MEDS ORDERED: GLUCAGON 1 MG VIAL IM PRN (10:57)
[2021-03-24] MEDS ORDERED: cefTRIAXone 1,000 MG in SODIUM CHLORIDE 0.9% 100 ML IV SCH (11:00)
[2021-03-24] MEDS: SODIUM CHLORIDE 0.9% 250 ML IV SCH ×2 (11:24→12:40)
[2021-03-24] MEDS ORDERED: ePHEDrine 50 MG/ML VIAL ONE (11:39)
[2021-03-24 12:10] LABS: Risk Ratio 4.18; Thyroid Stimulating Hormone 1.43 uIU/ml (0.358-3.74); VLDL Cholesterol 45.2 MG/DL
[2021-03-24] MEDS ORDERED: SEVOFLURANE 1 UNIT/15 MINUTE INH ONE (12:22)
[2021-03-24] MEDS: INSULIN LISPRO 100 UNIT/ML SUBCUT SCH ×3 (15:34→22:48)
[2021-03-24] MEDS: MORPHINE 2 MG/1 ML SYRINGE IV PRN (17:09)
[2021-03-24] MEDS: CLINDAMYCIN INJ 600 MG/50 ML PREMIX IV SCH (18:18)
[2021-03-24] MEDS: DOCUSATE SODIUM 100 MG CAPSULE PO SCH (21:39)
[2021-03-25] MEDS: CLINDAMYCIN INJ 600 MG/50 ML PREMIX IV SCH (02:59)
[2021-03-25 06:52] LABS: Basophils % 0.3 % (0.0-0.8); Eosinophils # 0.2 10*3/uL (0.0-0.87); Eosinophils % 1.8 % (0.00-10.9); Hematocrit 34.1 VOL% (42.0-52.0); Hemoglobin 10.8 GM/DL (14.0-18.0); Immature Granulocytes % 2.3 %; Immature Granulocytes Absolute 0.27 #; Lymphocytes # 0.9 10*3/uL (1.4-4.0); Lymphocytes % 7.9 % (21.2-54.2); Mean Corpuscular HGB Conc 31.7 GM/DL (32-36); Mean Corpuscular Volume 97.4 FL (87-102); Mean Platelet Volume 9.6 FL (9.6-12.0); Monocytes % 2.8 % (1.7-12.7); Neutrophils % 84.9 % (38.7-73.9); Platelet Count 336 T/CUMM (130-400); Red Cell Distribution Width 17.7 % (9.3-17.3); White Blood Count 11.8 T/CUMM (4-12)
[2021-03-25] MEDS: INSULIN LISPRO 100 UNIT/ML SUBCUT SCH ×4 (07:07→22:04)
[2021-03-25 07:17] LABS: Calcium 8.1 MG/DL (8.5-10.1); Osmolality,Calculated 283.2 MOS/KG (273-304); Potassium 4.4 MMOL/L (3.5-5.1)
[2021-03-25] MEDS: DOCUSATE SODIUM 100 MG CAPSULE PO SCH ×2 (08:25→21:29)
[2021-03-25] MEDS: ONDANSETRON 4 MG/2 ML VIAL IV PRN (08:54)
[2021-03-25] MEDS ORDERED: VANCOMYCIN INJ 1,250 MG in SODIUM CHLORIDE 0.9% 250 ML IV ONE (09:47)
[2021-03-25] MEDS ORDERED: PIPERACILLIN/TAZOBACTAM 2,250 MG in SODIUM CHLORIDE 0.9% 100 ML IV SCH (10:00)
[2021-03-25] MEDS: ACETAMINOPHEN 500 MG TABLET PO PRN ×2 (10:04→17:08)
[2021-03-25] MEDS ORDERED: VANCOMYCIN INJ 500 MG in SODIUM CHLORIDE 0.9% 100 ML IV PRN (10:10)
[2021-03-25 10:23] LABS: Basophils # 0.1 10*3/uL (0.0-0.2); Basophils % 0.4 % (0.0-0.8); Eosinophils # 0.2 10*3/uL (0.0-0.87); Eosinophils % 1.3 % (0.00-10.9); Hematocrit 38.2 VOL% (42.0-52.0); Immature Granulocytes % 1.8 %; Lymphocytes # 1.2 10*3/uL (1.4-4.0); Lymphocytes % 7.3 % (21.2-54.2); Mean Corpuscular HGB Conc 31.4 GM/DL (32-36); Mean Corpuscular Volume 96.7 FL (87-102); Mean Platelet Volume 9.3 FL (9.6-12.0); Monocytes % 2.9 % (1.7-12.7); NRBC # 0.03 10*3/uL; Neutrophils % 86.3 % (38.7-73.9); Platelet Count 364 T/CUMM (130-400); Red Blood Count 3.95 MC/CUMM (3.8-5.5); Red Cell Distribution Width 17.9 % (9.3-17.3); White Blood Count 16.7 T/CUMM (4-12)
[2021-03-25] MEDS ORDERED: VANCOMYCIN INJ 1,500 MG in SODIUM CHLORIDE 0.9% 500 ML IV ONE (12:00)
[2021-03-25] MEDS: HEPARIN 5,000 UNIT/1 ML VIAL SUBCUT SCH ×2 (13:39→21:29)
[2021-03-25] MEDS: PIPERACILLIN/TAZOBACTAM 3,375 MG in SODIUM CHLORIDE 0.9% 100 ML IV SCH (18:00)
[2021-03-26] MEDS: PIPERACILLIN/TAZOBACTAM 3,375 MG in SODIUM CHLORIDE 0.9% 100 ML IV SCH ×2 (01:49→12:49)
[2021-03-26 04:50] LABS: Basophils % 0.4 % (0.0-0.8); Eosinophils # 0.4 10*3/uL (0.0-0.87); Eosinophils % 3.3 % (0.00-10.9); Hematocrit 36.3 VOL% (42.0-52.0); Hemoglobin 11.1 GM/DL (14.0-18.0); Immature Granulocytes % 1.4 %; Immature Granulocytes Absolute 0.15 #; Lymphocytes # 1.3 10*3/uL (1.4-4.0); Lymphocytes % 12.4 % (21.2-54.2); Mean Corpuscular HGB Conc 30.6 GM/DL (32-36); Mean Corpuscular Volume 103.4 FL (87-102); Monocytes % 4.2 % (1.7-12.7); Neutrophils % 78.3 % (38.7-73.9); Red Blood Count 3.51 MC/CUMM (3.8-5.5); Red Cell Distribution Width 18.2 % (9.3-17.3)
[2021-03-26 04:55] LABS: Platelet Count 276 T/CUMM (130-400); White Blood Count 10.5 T/CUMM (4-12)
[2021-03-26] MEDS: HEPARIN 5,000 UNIT/1 ML VIAL SUBCUT SCH ×3 (05:21→20:57)
[2021-03-26 05:27] LABS: Calcium 7.9 MG/DL (8.5-10.1); Potassium 3.8 MMOL/L (3.5-5.1)
[2021-03-26] MEDS: DOCUSATE SODIUM 100 MG CAPSULE PO SCH ×2 (08:43→20:57)
[2021-03-26] MEDS: INSULIN LISPRO 100 UNIT/ML SUBCUT SCH ×4 (10:22→21:05)
[2021-03-26] MEDS: ONDANSETRON 4 MG/2 ML VIAL IV PRN (22:51)
[2021-03-27] MEDS: PIPERACILLIN/TAZOBACTAM 3,375 MG in SODIUM CHLORIDE 0.9% 100 ML IV SCH ×2 (02:12→12:48)
[2021-03-27] MEDS: HEPARIN 5,000 UNIT/1 ML VIAL SUBCUT SCH ×3 (04:58→21:19)
[2021-03-27 05:28] LABS: Basophils % 0.2 % (0.0-0.8); Eosinophils # 0.8 10*3/uL (0.0-0.87); Eosinophils % 6.3 % (0.00-10.9); Hematocrit 30.2 VOL% (42.0-52.0); Hemoglobin 9.8 GM/DL (14.0-18.0); Immature Granulocytes % 1.3 %; Immature Granulocytes Absolute 0.17 #; Lymphocytes # 1.2 10*3/uL (1.4-4.0); Lymphocytes % 8.6 % (21.2-54.2); Mean Corpuscular HGB Conc 32.5 GM/DL (32-36); Mean Corpuscular Volume 96.5 FL (87-102); Mean Platelet Volume 9.5 FL (9.6-12.0); Monocytes % 4.2 % (1.7-12.7); Neutrophils % 79.4 % (38.7-73.9); Platelet Count 281 T/CUMM (130-400); Red Blood Count 3.13 MC/CUMM (3.8-5.5); Red Cell Distribution Width 17.8 % (9.3-17.3); White Blood Count 13.4 T/CUMM (4-12)
[2021-03-27 05:47] LABS: Calcium 7.8 MG/DL (8.5-10.1); Osmolality,Calculated 287.8 MOS/KG (273-304)
[2021-03-27] MEDS: DOCUSATE SODIUM 100 MG CAPSULE PO SCH ×2 (08:32→21:19)
[2021-03-27] MEDS: INSULIN LISPRO 100 UNIT/ML SUBCUT SCH ×4 (08:35→20:39)
[2021-03-27] MEDS: MORPHINE 2 MG/1 ML SYRINGE IV PRN (16:35)
[2021-03-28] MEDS: PIPERACILLIN/TAZOBACTAM 3,375 MG in SODIUM CHLORIDE 0.9% 100 ML IV SCH (00:40)
[2021-03-28] MEDS: ACETAMINOPHEN 500 MG TABLET PO PRN (00:41)
[2021-03-28] MEDS ORDERED: fentaNYL 100 MCG/2 ML VIAL ONE (06:23)
[2021-03-28] MEDS ORDERED: ONDANSETRON 4 MG/2 ML VIAL ONE (06:23)
[2021-03-28] MEDS ORDERED: LIDOCAINE 2% 5 ML VIAL ONE (06:23)
[2021-03-28] MEDS ORDERED: propofoL 200 MG/20 ML VIAL IV ONE (06:23)
[2021-03-28] MEDS ORDERED: BACITRACIN OINT 0.9 GM PACK TOP ONE (06:43)
[2021-03-28] MEDS ORDERED: BUPIVACAINE MPF 0.25% 30 ML VIAL ONE (07:16)
[2021-03-28] MEDS ORDERED: PHENYLEPHRINE 1 MG/10 ML SYRINGE IV ONE ×3 (07:24→07:57)
[2021-03-28] MEDS ORDERED: SODIUM CHLORIDE 0.9% 250 ML IV ONE ×2 (07:24→08:09)
[2021-03-28] MEDS ORDERED: SEVOFLURANE 1 UNIT/15 MINUTE INH ONE (08:13)
[2021-03-28] MEDS: DOCUSATE SODIUM 100 MG CAPSULE PO SCH ×2 (09:00→21:25)
[2021-03-28] MEDS: INSULIN LISPRO 100 UNIT/ML SUBCUT SCH ×4 (09:25→22:39)
[2021-03-28] MEDS: HEPARIN 5,000 UNIT/1 ML VIAL SUBCUT SCH (21:25)
[2021-03-29] MEDS: ACETAMINOPHEN 500 MG TABLET PO PRN (00:13)
[2021-03-29] MEDS: HEPARIN 5,000 UNIT/1 ML VIAL SUBCUT SCH ×3 (04:03→20:58)
[2021-03-29 05:02] LABS: Basophils % 0.2 % (0.0-0.8); Eosinophils % 7.1 % (0.00-10.9); Hematocrit 32.6 VOL% (42.0-52.0); Hemoglobin 10.2 GM/DL (14.0-18.0); Immature Granulocytes % 1.3 %; Immature Granulocytes Absolute 0.18 #; Lymphocytes # 1.6 10*3/uL (1.4-4.0); Lymphocytes % 11.7 % (21.2-54.2); Mean Corpuscular HGB Conc 31.3 GM/DL (32-36); Mean Corpuscular Volume 97.9 FL (87-102); Mean Platelet Volume 9.6 FL (9.6-12.0); Monocytes % 6.8 % (1.7-12.7); Neutrophils % 72.9 % (38.7-73.9); Platelet Count 320 T/CUMM (130-400); Red Blood Count 3.33 MC/CUMM (3.8-5.5); Red Cell Distribution Width 17.7 % (9.3-17.3); White Blood Count 13.5 T/CUMM (4-12)
[2021-03-29 05:19] LABS: Calcium 8.9 MG/DL (8.5-10.1); Osmolality,Calculated 282.8 MOS/KG (273-304); Potassium 4.2 MMOL/L (3.5-5.1)
[2021-03-29] MEDS: INSULIN LISPRO 100 UNIT/ML SUBCUT SCH ×4 (07:07→21:12)
[2021-03-29] MEDS: DOCUSATE SODIUM 100 MG CAPSULE PO SCH ×2 (09:09→20:58)
[2021-03-29] MEDS ORDERED: SIMVASTATIN 20 MG TABLET PO SCH (21:00)
[2021-03-30] MEDS: HEPARIN 5,000 UNIT/1 ML VIAL SUBCUT SCH ×2 (03:23→13:01)
[2021-03-30] MEDS ORDERED: MAGNESIUM OXIDE 400 MG TABLET PO SCH (08:00)
[2021-03-30] MEDS: INSULIN LISPRO 100 UNIT/ML SUBCUT SCH ×2 (08:12→13:02)
[2021-03-30 08:25] LABS: Basophils % 0.3 % (0.0-0.8); Eosinophils # 1.2 10*3/uL (0.0-0.87); Eosinophils % 8.6 % (0.00-10.9); Hematocrit 29.5 VOL% (42.0-52.0); Hemoglobin 9.6 GM/DL (14.0-18.0); Immature Granulocytes Absolute 0.28 #; Lymphocytes # 1.9 10*3/uL (1.4-4.0); Lymphocytes % 13.9 % (21.2-54.2); Mean Corpuscular HGB Conc 32.5 GM/DL (32-36); Mean Corpuscular Volume 96.7 FL (87-102); Mean Platelet Volume 9.1 FL (9.6-12.0); Monocytes % 4.8 % (1.7-12.7); NRBC # 0.02 10*3/uL; Neutrophils % 70.4 % (38.7-73.9); Platelet Count 309 T/CUMM (130-400); Red Blood Count 3.05 MC/CUMM (3.8-5.5); Red Cell Distribution Width 17.7 % (9.3-17.3); White Blood Count 13.8 T/CUMM (4-12)
[2021-03-30 08:41] LABS: Osmolality,Calculated 288.1 MOS/KG (273-304); Potassium 4.2 MMOL/L (3.5-5.1)
[2021-03-30 08:58] LABS: Eosinophils 7 % (0-10); Lymphocytes 14 % (20-55); Segmented Neutrophils 74 % (50-85); Total Cells Counted 100
[2021-03-30 08:59] LABS: Hypochromasia 1+
[2021-03-30 09:00] LABS: Anisocytosis 1+; Microcytosis 1+
[2021-03-30 09:01] LABS: Polychromasia Slight
[2021-03-30] MEDS: DOCUSATE SODIUM 100 MG CAPSULE PO SCH (13:01)
[2021-03-30 16:11] VITALS: BP 136/60
[2021-03-30] MEDS ORDERED: carvediloL 12.5 MG TABLET PO SCH (21:00)
[2021-03-31] MEDS ORDERED: FUROSEMIDE 20 MG TABLET PO SCH (09:00)
[2021-04-02] MEDS ORDERED: ERGOCALCIFEROL 50,000 UNIT CAPSULE PO SCH (09:00)
== END 2021-03-30 16:25 | disposition home health service (06) | DRG 255 ==
LOC: N.ED 07:54 → SUATTDRO 10:16 → N.EDINP 10:16 → N.3E 10:55
PROVIDERS: ADMIT Internal Medicine; ATTEND Hospitalist

== ENCOUNTER 2022-06-30 04:56 | Inpatient (IN) ==
[2022-06-30] MEDS ORDERED: SODIUM CHLORIDE 0.9% 500 ML IV STA (05:29)
[2022-06-30] MEDS ORDERED: ONDANSETRON 4 MG/2 ML VIAL IV ONE (05:38)
[2022-06-30] MEDS ORDERED: ONDANSETRON 4 MG/2 ML VIAL ONE (05:38)
[2022-06-30 05:47] LABS: Basophils # 0.1 10*3/uL (0.0-0.2); Basophils % 0.3 % (0.0-0.8); Hematocrit 58.4 VOL% (42.0-52.0); Hemoglobin 18.5 GM/DL (14.0-18.0); Immature Granulocytes % 0.6 %; Immature Granulocytes Absolute 0.11 #; Lymphocytes # 2.1 10*3/uL (1.4-4.0); Lymphocytes % 11.1 % (21.2-54.2); Mean Corpuscular HGB Conc 31.7 GM/DL (32-36); Mean Corpuscular Volume 101.7 FL (87-102); Mean Platelet Volume 10.4 FL (9.6-12.0); Monocytes # 1.3 10*3/uL (0.11-0.8); Monocytes % 6.9 % (1.7-12.7); NRBC # 0.02 10*3/uL; Neutrophils % 81.1 % (38.7-73.9); Platelet Count 271 T/CUMM (130-400); Red Blood Count 5.74 MC/CUMM (3.8-5.5); Red Cell Distribution Width 18.1 % (9.3-17.3); White Blood Count 19.3 T/CUMM (4-12)
[2022-06-30 06:14] LABS: Albumin 4.2 G/DL (3.4-5.0); Bilirubin,Total 0.7 MG/DL (0.20-1.00); Calcium 10.2 MG/DL (8.5-10.1); Osmolality,Calculated 291.8 MOS/KG (273-304); Potassium 5.4 MMOL/L (3.5-5.1); Total Protein 8.7 G/DL (6.4-8.2)
[2022-06-30] MEDS ORDERED: cefTRIAXone 1,000 MG in SODIUM CHLORIDE 0.9% 100 ML IV STA (07:08)
[2022-06-30] MEDS ORDERED: SODIUM CHLORIDE 0.9% 1,000 ML IV ONE (08:52)
[2022-06-30] MEDS ORDERED: ACETAMINOPHEN 325 MG TABLET PO PRN (08:53)
[2022-06-30] MEDS ORDERED: AZITHROMYCIN INJ 500 MG in SODIUM CHLORIDE 0.9% 250 ML IV STA (08:53)
[2022-06-30] MEDS: HEPARIN 5,000 UNIT/1 ML VIAL SUBCUT SCH ×2 (09:18→20:27)
[2022-06-30] MEDS: ONDANSETRON 4 MG/2 ML VIAL IV PRN ×2 (09:24→17:02)
[2022-06-30] MEDS ORDERED: ALBUTEROL/IPRATROPIUM 3 ML NEB RESP TX PRN (09:45)
[2022-06-30] MEDS: INSULIN LISPRO 100 UNIT/ML SUBCUT SCH ×3 (12:00→20:47)
[2022-07-01 06:05] LABS: Basophils # 0.1 10*3/uL (0.0-0.2); Basophils % 0.3 % (0.0-0.8); Eosinophils # 0.3 10*3/uL (0.0-0.87); Eosinophils % 1.8 % (0.00-10.9); Hematocrit 48.5 VOL% (42.0-52.0); Hemoglobin 15.3 GM/DL (14.0-18.0); Immature Granulocytes % 0.7 %; Immature Granulocytes Absolute 0.13 #; Lymphocytes # 0.9 10*3/uL (1.4-4.0); Lymphocytes % 5.3 % (21.2-54.2); Mean Corpuscular HGB Conc 31.5 GM/DL (32-36); Mean Corpuscular Volume 101.9 FL (87-102); Mean Platelet Volume 10.2 FL (9.6-12.0); Monocytes # 1.1 10*3/uL (0.11-0.8); Monocytes % 6.3 % (1.7-12.7); NRBC # 0.05 10*3/uL; Neutrophils % 85.6 % (38.7-73.9); Platelet Count 218 T/CUMM (130-400); Red Blood Count 4.76 MC/CUMM (3.8-5.5); Red Cell Distribution Width 16.8 % (9.3-17.3); White Blood Count 17.8 T/CUMM (4-12)
[2022-07-01 06:38] LABS: Calcium 9.3 MG/DL (8.5-10.1); Osmolality,Calculated 283.1 MOS/KG (273-304); Potassium 4.1 MMOL/L (3.5-5.1)
[2022-07-01] MEDS: HEPARIN 5,000 UNIT/1 ML VIAL SUBCUT SCH ×2 (08:52→21:21)
[2022-07-01] MEDS: INSULIN LISPRO 100 UNIT/ML SUBCUT SCH ×4 (08:52→21:33)
[2022-07-01] MEDS: cefTRIAXone 1,000 MG in SODIUM CHLORIDE 0.9% 100 ML IV SCH (08:53)
[2022-07-01] MEDS ORDERED: AZITHROMYCIN INJ 250 MG in SODIUM CHLORIDE 0.9% 250 ML IV SCH (09:00)
[2022-07-01] MEDS: AZITHROMYCIN INJ 500 MG in SODIUM CHLORIDE 0.9% 250 ML IV SCH (10:30)
[2022-07-01] MEDS: ONDANSETRON 4 MG/2 ML VIAL IV PRN (21:21)
[2022-07-02 05:58] LABS: Basophils % 0.2 % (0.0-0.8); Eosinophils # 0.8 10*3/uL (0.0-0.87); Eosinophils % 6.4 % (0.00-10.9); Hemoglobin 14.2 GM/DL (14.0-18.0); Immature Granulocytes % 0.6 %; Immature Granulocytes Absolute 0.08 #; Lymphocytes # 0.8 10*3/uL (1.4-4.0); Lymphocytes % 6.2 % (21.2-54.2); Mean Corpuscular HGB Conc 32.3 GM/DL (32-36); Mean Platelet Volume 10.4 FL (9.6-12.0); Monocytes % 8.2 % (1.7-12.7); NRBC # 0.02 10*3/uL; Neutrophils % 78.4 % (38.7-73.9); Platelet Count 207 T/CUMM (130-400); Red Cell Distribution Width 16.2 % (9.3-17.3); White Blood Count 12.4 T/CUMM (4-12)
[2022-07-02 06:24] LABS: Calcium 9.3 MG/DL (8.5-10.1); Osmolality,Calculated 279.4 MOS/KG (273-304); Potassium 4.1 MMOL/L (3.5-5.1)
[2022-07-02] MEDS: AZITHROMYCIN INJ 500 MG in SODIUM CHLORIDE 0.9% 250 ML IV SCH (09:20)
[2022-07-02] MEDS: cefTRIAXone 1,000 MG in SODIUM CHLORIDE 0.9% 100 ML IV SCH (09:20)
[2022-07-02] MEDS: HEPARIN 5,000 UNIT/1 ML VIAL SUBCUT SCH ×2 (09:20→20:54)
[2022-07-02] MEDS: INSULIN LISPRO 100 UNIT/ML SUBCUT SCH ×4 (10:15→20:54)
[2022-07-02] MEDS ORDERED: METOCLOPRAMIDE 5 MG TABLET PO ONE (10:48)
[2022-07-02] MEDS: ONDANSETRON 4 MG/2 ML VIAL IV PRN ×2 (11:31→20:55)
[2022-07-03] MEDS ORDERED: FAMOTIDINE 20 MG/2 ML VIAL IV ONE (00:13)
[2022-07-03] MEDS ORDERED: METOCLOPRAMIDE 10 MG/2 ML VIAL IV ONE (00:30)
[2022-07-03 06:18] LABS: Basophils % 0.1 % (0.0-0.8); Eosinophils # 0.7 10*3/uL (0.0-0.87); Eosinophils % 4.8 % (0.00-10.9); Hematocrit 43.5 VOL% (42.0-52.0); Hemoglobin 14.5 GM/DL (14.0-18.0); Immature Granulocytes % 0.9 %; Immature Granulocytes Absolute 0.13 #; Lymphocytes # 0.6 10*3/uL (1.4-4.0); Lymphocytes % 4.4 % (21.2-54.2); Mean Corpuscular HGB Conc 33.3 GM/DL (32-36); Mean Corpuscular Volume 97.3 FL (87-102); Mean Platelet Volume 10.5 FL (9.6-12.0); Monocytes # 1.3 10*3/uL (0.11-0.8); Monocytes % 9.2 % (1.7-12.7); NRBC # 0.02 10*3/uL; Neutrophils % 80.6 % (38.7-73.9); Platelet Count 204 T/CUMM (130-400); Red Blood Count 4.47 MC/CUMM (3.8-5.5); Red Cell Distribution Width 15.9 % (9.3-17.3); White Blood Count 14.1 T/CUMM (4-12)
[2022-07-03 06:37] LABS: Calcium 8.8 MG/DL (8.5-10.1); Osmolality,Calculated 276.1 MOS/KG (273-304); Potassium 4.4 MMOL/L (3.5-5.1)
[2022-07-03 06:43] LABS: Band Neutrophils 1 % (0-10); Eosinophils 4 % (0-10); Lymphocytes 4 % (20-55); Nucleated Red Blood Cells 1 /100 WBC (0-5); Total Cells Counted 100
[2022-07-03 06:44] LABS: Microcytosis Slight
[2022-07-03 06:45] LABS: Platelet Estimate Normal; Polychromasia Slight
[2022-07-03] MEDS: cefTRIAXone 1,000 MG in SODIUM CHLORIDE 0.9% 100 ML IV SCH (08:47)
[2022-07-03] MEDS: AZITHROMYCIN INJ 500 MG in SODIUM CHLORIDE 0.9% 250 ML IV SCH (08:48)
[2022-07-03] MEDS: HEPARIN 5,000 UNIT/1 ML VIAL SUBCUT SCH ×2 (08:50→21:55)
[2022-07-03] MEDS: INSULIN LISPRO 100 UNIT/ML SUBCUT SCH ×4 (08:51→21:57)
[2022-07-03 09:22] LABS: Basophils % 0.1 % (0.0-0.8); Eosinophils # 0.7 10*3/uL (0.0-0.87); Eosinophils % 5.2 % (0.00-10.9); Hematocrit 43.8 VOL% (42.0-52.0); Hemoglobin 14.4 GM/DL (14.0-18.0); Immature Granulocytes % 0.7 %; Immature Granulocytes Absolute 0.09 #; Lymphocytes # 0.6 10*3/uL (1.4-4.0); Lymphocytes % 4.4 % (21.2-54.2); Mean Corpuscular HGB Conc 32.9 GM/DL (32-36); Mean Corpuscular Volume 97.3 FL (87-102); Mean Platelet Volume 9.3 FL (9.6-12.0); Monocytes # 0.9 10*3/uL (0.11-0.8); Monocytes % 7.2 % (1.7-12.7); NRBC # 0.03 10*3/uL; Neutrophils % 82.4 % (38.7-73.9); Platelet Count 195 T/CUMM (130-400); Red Cell Distribution Width 16.2 % (9.3-17.3)
[2022-07-03 09:36] LABS: Calcium 8.8 MG/DL (8.5-10.1); Osmolality,Calculated 280.9 MOS/KG (273-304); Potassium 4.3 MMOL/L (3.5-5.1)
[2022-07-03 10:27] LABS: Eosinophils 5 % (0-10); Lymphocytes 5 % (20-55); Total Cells Counted 100
[2022-07-03 10:28] LABS: Platelet Estimate Adequate
[2022-07-03] MEDS: carvediloL 12.5 MG TABLET PO SCH (21:57)
[2022-07-04] MEDS: HEPARIN 5,000 UNIT/1 ML VIAL SUBCUT SCH ×2 (08:40→23:17)
[2022-07-04] MEDS: cefTRIAXone 1,000 MG in SODIUM CHLORIDE 0.9% 100 ML IV SCH (08:40)
[2022-07-04] MEDS: carvediloL 12.5 MG TABLET PO SCH ×2 (08:40→21:47)
[2022-07-04] MEDS: INSULIN LISPRO 100 UNIT/ML SUBCUT SCH ×4 (09:51→23:06)
[2022-07-04] MEDS: AZITHROMYCIN INJ 500 MG in SODIUM CHLORIDE 0.9% 250 ML IV SCH (10:15)
[2022-07-04] MEDS ORDERED: SODIUM CHLORIDE 0.9% 500 ML IV ONE (11:42)
[2022-07-04 12:23] LABS: Calcium 8.5 MG/DL (8.5-10.1); Osmolality,Calculated 272.8 MOS/KG (273-304); Potassium 4.2 MMOL/L (3.5-5.1)
[2022-07-05] MEDS ORDERED: SODIUM CHLORIDE 0.9% 250 ML IV ONE (04:33)
[2022-07-05] MEDS ORDERED: carvediloL 12.5 MG TABLET PO SCH (08:00)
[2022-07-05] MEDS: INSULIN LISPRO 100 UNIT/ML SUBCUT SCH ×4 (08:18→21:51)
[2022-07-05] MEDS: cefTRIAXone 1,000 MG in SODIUM CHLORIDE 0.9% 100 ML IV SCH (12:14)
[2022-07-05] MEDS: HEPARIN 5,000 UNIT/1 ML VIAL SUBCUT SCH ×2 (12:14→21:48)
[2022-07-05 13:36] LABS: Basophils % 0.2 % (0.0-0.8); Eosinophils # 0.7 10*3/uL (0.0-0.87); Eosinophils % 8.6 % (0.00-10.9); Hematocrit 41.6 VOL% (42.0-52.0); Hemoglobin 13.5 GM/DL (14.0-18.0); Immature Granulocytes % 2.1 %; Immature Granulocytes Absolute 0.18 #; Lymphocytes # 0.8 10*3/uL (1.4-4.0); Lymphocytes % 9.3 % (21.2-54.2); Mean Corpuscular HGB Conc 32.5 GM/DL (32-36); Mean Corpuscular Volume 97.9 FL (87-102); Mean Platelet Volume 10.4 FL (9.6-12.0); Monocytes # 0.8 10*3/uL (0.11-0.8); Monocytes % 9.6 % (1.7-12.7); Neutrophils % 70.2 % (38.7-73.9); Platelet Count 138 T/CUMM (130-400); Red Blood Count 4.25 MC/CUMM (3.8-5.5); Red Cell Distribution Width 16.2 % (9.3-17.3); White Blood Count 8.6 T/CUMM (4-12)
[2022-07-05] MEDS: carvediloL 6.25 MG TABLET PO SCH (16:13)
[2022-07-06] MEDS: carvediloL 6.25 MG TABLET PO SCH ×2 (09:14→17:44)
[2022-07-06] MEDS: INSULIN LISPRO 100 UNIT/ML SUBCUT SCH ×4 (09:15→20:16)
[2022-07-06] MEDS: cefTRIAXone 1,000 MG in SODIUM CHLORIDE 0.9% 100 ML IV SCH (09:15)
[2022-07-06] MEDS: HEPARIN 5,000 UNIT/1 ML VIAL SUBCUT SCH ×2 (09:15→21:00)
[2022-07-06] MEDS: ONDANSETRON 4 MG/2 ML VIAL IV PRN (12:55)
[2022-07-06] MEDS: chlorproMAZINE 25 MG TABLET PO PRN (14:20)
[2022-07-07] MEDS: INSULIN LISPRO 100 UNIT/ML SUBCUT SCH ×4 (08:06→20:26)
[2022-07-07] MEDS: cefTRIAXone 1,000 MG in SODIUM CHLORIDE 0.9% 100 ML IV SCH (09:00)
[2022-07-07] MEDS: METOCLOPRAMIDE 10 MG/2 ML VIAL IV SCH ×3 (09:04→16:40)
[2022-07-07] MEDS: ONDANSETRON 4 MG/2 ML VIAL IV PRN ×3 (09:04→20:59)
[2022-07-07] MEDS: carvediloL 6.25 MG TABLET PO SCH ×2 (11:52→17:46)
[2022-07-07] MEDS: HEPARIN 5,000 UNIT/1 ML VIAL SUBCUT SCH ×2 (13:03→20:55)
[2022-07-07 15:04] LABS: Basophils # 0.1 10*3/uL (0.0-0.2); Basophils % 0.6 % (0.0-0.8); Eosinophils % 9.1 % (0.00-10.9); Hematocrit 38.6 VOL% (42.0-52.0); Hemoglobin 12.5 GM/DL (14.0-18.0); Immature Granulocytes % 2.3 %; Immature Granulocytes Absolute 0.24 #; Lymphocytes # 1.7 10*3/uL (1.4-4.0); Lymphocytes % 16.4 % (21.2-54.2); Mean Corpuscular HGB Conc 32.4 GM/DL (32-36); Mean Platelet Volume 10.3 FL (9.6-12.0); Monocytes # 1.2 10*3/uL (0.11-0.8); Monocytes % 10.9 % (1.7-12.7); Neutrophils % 60.7 % (38.7-73.9); Platelet Count 152 T/CUMM (130-400); Red Blood Count 3.94 MC/CUMM (3.8-5.5); Red Cell Distribution Width 16.3 % (9.3-17.3); White Blood Count 10.6 T/CUMM (4-12)
[2022-07-07 15:32] LABS: Albumin 2.3 G/DL (3.4-5.0); Bilirubin,Total 0.4 MG/DL (0.20-1.00); Calcium 8.6 MG/DL (8.5-10.1); Osmolality,Calculated 282.7 MOS/KG (273-304); Potassium 3.9 MMOL/L (3.5-5.1); Total Protein 5.8 G/DL (6.4-8.2)
[2022-07-07 16:43] LABS: Platelet Estimate Normal
[2022-07-08] MEDS: INSULIN LISPRO 100 UNIT/ML SUBCUT SCH ×3 (07:51→16:27)
[2022-07-08] MEDS: METOCLOPRAMIDE 10 MG/2 ML VIAL IV SCH ×3 (09:39→16:26)
[2022-07-08] MEDS: cefTRIAXone 1,000 MG in SODIUM CHLORIDE 0.9% 100 ML IV SCH (09:47)
[2022-07-08] MEDS: carvediloL 6.25 MG TABLET PO SCH ×2 (09:50→17:29)
[2022-07-08] MEDS: HEPARIN 5,000 UNIT/1 ML VIAL SUBCUT SCH ×2 (09:51→21:10)
[2022-07-08] MEDS: PANTOPRAZOLE 40 MG TABLET PO SCH ×2 (15:30→21:08)
[2022-07-08] MEDS: ONDANSETRON 4 MG/2 ML VIAL IV PRN (16:26)
[2022-07-08] MEDS: chlorproMAZINE 25 MG TABLET PO PRN (17:29)
[2022-07-09] MEDS: INSULIN LISPRO 100 UNIT/ML SUBCUT SCH ×5 (01:36→21:20)
[2022-07-09] MEDS ORDERED: PANTOPRAZOLE 40 MG TABLET PO SCH (09:00)
[2022-07-09] MEDS: PANTOPRAZOLE 40 MG TABLET PO SCH ×2 (09:06→21:20)
[2022-07-09] MEDS: carvediloL 6.25 MG TABLET PO SCH ×2 (09:06→18:32)
[2022-07-09] MEDS: HEPARIN 5,000 UNIT/1 ML VIAL SUBCUT SCH ×2 (09:06→21:20)
[2022-07-09] MEDS: METOCLOPRAMIDE 10 MG/2 ML VIAL IV SCH ×3 (09:07→18:33)
[2022-07-09] MEDS: chlorproMAZINE 25 MG TABLET PO PRN ×2 (12:14→21:34)
[2022-07-10] MEDS: INSULIN LISPRO 100 UNIT/ML SUBCUT SCH ×4 (07:50→21:24)
[2022-07-10] MEDS: carvediloL 6.25 MG TABLET PO SCH ×2 (08:02→17:04)
[2022-07-10] MEDS: PANTOPRAZOLE 40 MG TABLET PO SCH (08:02)
[2022-07-10] MEDS: METOCLOPRAMIDE 10 MG/2 ML VIAL IV SCH ×3 (08:04→17:22)
[2022-07-10] MEDS: HEPARIN 5,000 UNIT/1 ML VIAL SUBCUT SCH ×2 (08:05→21:23)
[2022-07-10] MEDS ORDERED: propofoL 200 MG/20 ML VIAL IV ONE (09:54)
[2022-07-10] MEDS ORDERED: ETOMIDATE 20 MG/10 ML VIAL IV ONE (09:54)
[2022-07-10] MEDS ORDERED: LIDOCAINE 2% 5 ML VIAL ONE (09:54)
[2022-07-10] MEDS ORDERED: SODIUM CHLORIDE 0.9% 500 ML IV SCH (10:00)
[2022-07-10] MEDS: PANTOPRAZOLE 40 MG VIAL IV SCH ×2 (10:29→21:23)
[2022-07-10] MEDS: chlorproMAZINE 25 MG TABLET PO PRN (21:23)
[2022-07-11] MEDS: ONDANSETRON 4 MG/2 ML VIAL IV PRN (00:51)
[2022-07-11 05:15] LABS: Basophils # 0.1 10*3/uL (0.0-0.2); Basophils % 1.4 % (0.0-0.8); Eosinophils # 0.8 10*3/uL (0.0-0.87); Eosinophils % 9.9 % (0.00-10.9); Hemoglobin 10.9 GM/DL (14.0-18.0); Immature Granulocytes % 3.3 %; Immature Granulocytes Absolute 0.28 #; Lymphocytes # 2.1 10*3/uL (1.4-4.0); Lymphocytes % 25.6 % (21.2-54.2); Mean Corpuscular HGB Conc 32.1 GM/DL (32-36); Mean Corpuscular Volume 99.1 FL (87-102); Mean Platelet Volume 10.2 FL (9.6-12.0); Monocytes # 1.1 10*3/uL (0.11-0.8); Monocytes % 13.2 % (1.7-12.7); Neutrophils % 46.6 % (38.7-73.9); Platelet Count 268 T/CUMM (130-400); Red Blood Count 3.43 MC/CUMM (3.8-5.5); Red Cell Distribution Width 15.9 % (9.3-17.3); White Blood Count 8.4 T/CUMM (4-12)
[2022-07-11 05:41] LABS: Calcium 9.1 MG/DL (8.5-10.1)
[2022-07-11 05:42] LABS: Osmolality,Calculated 280.8 MOS/KG (273-304)
[2022-07-11] MEDS: HEPARIN 5,000 UNIT/1 ML VIAL SUBCUT SCH (09:03)
[2022-07-11] MEDS: METOCLOPRAMIDE 10 MG/2 ML VIAL IV SCH ×2 (09:03→12:09)
[2022-07-11] MEDS: carvediloL 6.25 MG TABLET PO SCH (09:04)
[2022-07-11] MEDS: PANTOPRAZOLE 40 MG VIAL IV SCH (09:04)
[2022-07-11] MEDS: INSULIN LISPRO 100 UNIT/ML SUBCUT SCH ×2 (09:04→11:09)
[2022-07-11 11:41] VITALS: BP 95/45
== END 2022-07-11 13:58 | disposition home health service (06) | DRG 193 ==
LOC: N.ED 04:56 → SUATTDRO 08:53 → N.EDINP 08:53 → N.3E 13:27
PROVIDERS: ADMIT Internal Medicine; ATTEND Internal Medicine